=== PATIENT | female | born 1955 | race African-American/Black ===

== ENCOUNTER 2017-03-05 01:34 | Emergency (ER) | payer MEDICAID ==
[~2017-03-05] VITALS: Ht 162.6 cm; Wt 103.0 kg
[~2017-03-05 01:34] MED LIST: A VITE PO; ALBU6.7H INH; AMLO1CAP2 PO; ARIP30TA3 PO; ATOR10TA69 PO; BENA40TA66 PO; DOCU-150 PO; FERR-63 PO; FLUO-124 PO; FURO-152 PO; HYDR-4134 PO; IPRA12.94 INH; LIP40 PO; LOSARTAN PO; MELO15TA13 PO; METH-24 PO; OCD PO; OMEPRAZOLE PO; QUET50TA11 PO; SENN-22 PO; TRIA1TAB92 PO
[2017-03-05 02:53] LABS: BASOPHILS % 1.2 % (0.0-2.0); EOSINOPHILS % 5.2 % (0.0-5.0); HEMATOCRIT. 26.7 % (36.0-48.0); HEMOGLOBIN. 8.7 g/dL (12.0-16.0); LYMPHOCYTES % 33.2 % (20.0-50.0); MEAN CORPUSCULAR HEMOGLOBIN 28.7 pg (28.0-32.0); MEAN CORPUSCULAR HGB CONC 32.5 g/dL (31.0-37.0); MEAN CORPUSCULAR VOLUME 88.5 fL (81.0-99.0); MEAN PLATELET VOLUME 7.1 fl (7.4-10.4); NEUTROPHILS % 46.4 % (40.0-76.0); PLATELET 381 x1000/uL (130-400); RED BLOOD CELL COUNT 3.02 mill/uL (4.2-5.4); WHITE BLOOD COUNT 6.9 x1000/uL (4.5-11.0)
[2017-03-05 03:00] LABS: PROTHROMBIN TIME 10.5 sec
[2017-03-05 03:04] LABS: ALANINE AMINOTRANSFERASE 23 IU/L (13-61); ALBUMIN 3.2 g/dL (3.4-5.0); ANION GAP 16; CARBON DIOXIDE 25 mEq/L (21-32); CHLORIDE 103 mEq/L (98-107); INDEX HEMOLYSI 1 (1-3); INDEX ICTERIC 1 (1-4); INDEX LIPEMIC 1 (1-3); UREA NITROGEN BLOOD 64 mg/dL (7-21); eGFR 8 mL/min (>60)
[2017-03-05 03:09] LABS: CALCIUM 5.9 mg/dL (8.5-10.1)
[2017-03-05 14:49] VITALS: BP 134/87
== END 2017-03-05 16:30 | disposition home or self-care (01) ==
LOC: ER 01:34
DX: I12.9 Hypertensive chronic kidney disease with stage 1 through stage 4 chronic kidney disease, or unspecified chronic kidney disease (principal); N18.9 Chronic kidney disease, unspecified; R53.1 Weakness; E11.9 Type 2 diabetes mellitus without complications; Z88.0 Allergy status to penicillin; Z99.2 Dependence on renal dialysis; Z79.899 Other long term (current) drug therapy; S90.521A Blister (nonthermal), right ankle, initial encounter
CPT/HCPCS: 36415; 71010; 80053; 84484; 85025; 85610; 86850; 86900; 86901; 93005; 99285; Z7610